=== PATIENT | female | born 1960 | race Caucasian/White ===

== ENCOUNTER 2017-06-07 14:13 | Emergency (ER) | payer SELFPAY ==
[2017-06-07] MEDS ORDERED: Ketorolac Tromethamine 60 MG/2 ML VIAL ONE (14:41)
== END 2017-06-07 14:50 | disposition home or self-care (01) ==
LOC: NAV ERS 14:13
DX: M54.42 Lumbago with sciatica, left side (principal); E11.9 Type 2 diabetes mellitus without complications; I10 Essential (primary) hypertension; F32.9 Major depressive disorder, single episode, unspecified; Z79.4 Long term (current) use of insulin; Z87.891 Personal history of nicotine dependence; Z79.84 Long term (current) use of oral hypoglycemic drugs; Z79.899 Other long term (current) drug therapy
CPT/HCPCS: 96372; J1885

== ENCOUNTER 2018-06-18 08:59 | Emergency (ER) | payer SELFPAY ==
[2018-06-18] MEDS ORDERED: Ibuprofen 200 MG TAB ONE (09:38)
[2018-06-18 09:57] LABS: Bilirubin Negative (Negative); Blood, Urine Trace (Negative); Clarity Clear (Clear); Glucose, Urine (Dipstick) 100 mg/dL (Negative); Leukocyte Moderate (Negative); Nitrite Positive (Negative); Protein, Urine (Dipstick) Trace mg/dL (Neg-Trace); pH, Urine 5.5 (5.0-9.0)
[2018-06-18 09:57] LABS: #Basophils 0.1 thou/uL (0.0-0.2); #Lymphocytes 1.9 thou/uL (1.20-3.40); #Monocytes 0.8 thou/uL (0.11-0.59); #Neutrophils 9.2 thou/uL (1.40-6.50); %Basophils 0.5 % (0.0-1.0); %Eosinophils 0.3 % (0.0-10.0); %Lymphocytes 16.1 % (21.0-51.0); %Monocytes 6.6 % (0.0-10.0); %Neutrophils 76.5 % (42.0-75.0); Hemoglobin 13.9 g/dL (12.0-16.0); Mean Corpuscular HGB CONC 32.4 g/dL (32.0-36.0); Mean Corpuscular Hemoglobin 27.6 pg (27.0-31.0); Mean Corpuscular Volume 85.3 fL (78.0-98.0); Mean Platelet Volume 7.3 fL (7.4-10.4); Platelet Count 387 thou/uL (130-400); RBC Distribution Width 11.4 % (11.5-14.5); Red Blood Cell (RBC) Count 5.02 mill/uL (4.20-5.40)
[2018-06-18 10:05] LABS: Bacteria/HPF 3+ HPF (None Seen); RBC/HPF 0-3 HPF (0-3); WBC/HPF 21-50 HPF (0-3)
[2018-06-18 10:10] LABS: ALT (SGPT) 43 U/L (8-55); AST (SGOT) 17 U/L (5-34); Albumin 4.5 g/dL (3.5-5.0); Alkaline Phosphatase 162 U/L (40-150); Anion Gap 20 mmol/L (10-20); BUN (Urea Nitrogen) 18 mg/dL (9.8-20.1); Bilirubin, Total 0.7 mg/dL (0.2-1.2); Calc. Creatinine Clearance 0 mL/min (70-130); Calcium 10.8 mg/dL (7.8-10.44); Carbon Dioxide 21 mmol/L (22-29); Chloride 94 mmol/L (98-107); Estimated GFR-MDRD 50; Glucose 269 mg/dL (70-105); Potassium 4.3 mmol/L (3.5-5.1); Protein, Total 8.5 g/dL (6.0-8.3); Sodium 131 mmol/L (136-145)
[2018-06-18] MEDS ORDERED: Sodium Chloride 0.9% 100 ML ONE (10:15)
[2018-06-18] MEDS ORDERED: cefTRIAXone\\ROCEPHIN 1 GM VIAL ONE (10:15)
[2018-06-18] MEDS ORDERED: Sodium Chloride 0.9% 1,000 ML ONE (10:15)
--- NOTE | 2018-06-18 10:30 | RAD ---
CHEST 1 VIEW: HISTORY: Fever. COMPARISON: None. FINDINGS: The lungs are clear. No pneumothorax or effusion. Cardiac silhouette and mediastinal contours are w ithin normal limits. IMPRESSION: No acute intrathoracic abnormality. POS: [facility]
== END 2018-06-18 11:43 | disposition home or self-care (01) ==
LOC: NAV ERS 08:59
DX: N12 Tubulo-interstitial nephritis, not specified as acute or chronic (principal); E78.5 Hyperlipidemia, unspecified; E11.9 Type 2 diabetes mellitus without complications; I10 Essential (primary) hypertension; F41.9 Anxiety disorder, unspecified; F32.9 Major depressive disorder, single episode, unspecified; Z87.891 Personal history of nicotine dependence; Z79.4 Long term (current) use of insulin; Z79.899 Other long term (current) drug therapy
CPT/HCPCS: 71046; 80053; 81003; 81015; 83605; 85025; 87040; 87077; 87086; 87186; 87804; 96365; J0696; J7050

== ENCOUNTER 2020-06-09 13:30 | Emergency (ER) | payer SELFPAY ==
[2020-06-09] MEDS ORDERED: Aspirin Chewable 81 MG TAB ONE (13:41)
[2020-06-09] MEDS ORDERED: Nitroglycerin 0.4 MG TAB (25 Tab Bottle) ONE (13:41)
[2020-06-09] MEDS ORDERED: Metoprolol Tartrate 5 MG/5 ML VIAL ONE (13:45)
[2020-06-09] MEDS ORDERED: Ondansetron PF 4 MG/2 ML Vial ONE (14:00)
[2020-06-09 14:01] LABS: #Basophils 0.1 thou/uL (0.0-0.2); #Eosinphils 0.1 thou/uL (0.0-0.7); #Lymphocytes 3.1 thou/uL (1.20-3.40); #Monocytes 0.5 thou/uL (0.11-0.59); #Neutrophils 5.4 thou/uL (1.40-6.50); %Basophils 0.9 % (0.0-1.0); %Eosinophils 0.8 % (0.0-10.0); %Lymphocytes 33.6 % (21.0-51.0); %Monocytes 4.9 % (0.0-10.0); %Neutrophils 59.8 % (42.0-75.0); Hemoglobin 13.3 g/dL (12.0-16.0); Mean Corpuscular Hemoglobin 28.5 pg (27.0-31.0); Mean Corpuscular Volume 88.9 fL (78.0-98.0); Mean Platelet Volume 7.4 fL (7.4-10.4); Platelet Count 304 thou/uL (130-400); RBC Distribution Width 11.9 % (11.5-14.5); Red Blood Cell (RBC) Count 4.67 mill/uL (4.20-5.40); White Blood Cell (WBC) Count 9.1 thou/uL (4.8-10.8)
[2020-06-09 14:14] LABS: ALT (SGPT) 14 U/L (8-55); AST (SGOT) 13 U/L (5-34); Albumin 4.5 g/dL (3.5-5.0); Alkaline Phosphatase 66 U/L (40-110); Anion Gap 16 mmol/L (10-20); BUN (Urea Nitrogen) 11 mg/dL (9.8-20.1); Bilirubin, Total 0.2 mg/dL (0.2-1.2); CK (CPK) 63 U/L (29-168); Calc. Creatinine Clearance 0 mL/min (70-130); Calcium 9.2 mg/dL (7.8-10.44); Carbon Dioxide 25 mmol/L (22-29); Chloride 98 mmol/L (98-107); Estimated GFR-MDRD 52; Globulin 2.4 g/dL (2.4-3.5); Glucose 334 mg/dL (70-105); Lipase 62 U/L (8-78); Potassium 4.4 mmol/L (3.5-5.1); Protein, Total 6.9 g/dL (6.0-8.3); Sodium 135 mmol/L (136-145)
[2020-06-09] MEDS ORDERED: Insulin Regular 300 UNITS/3 ML VIAL ONE (14:31)
--- NOTE | 2020-06-09 15:49 | RAD ---
PORTABLE CHEST: HISTORY: Chest pain. FINDINGS: The lungs appear clear. No infiltrate or vascular congestion. Heart and mediastinum unremarkable. IMPRESSION: No acute finding. POS: OFF
== END 2020-06-09 15:20 | disposition short-term general hospital (02) ==
LOC: NAV ERS 13:30
DX: R07.2 Precordial pain (principal); E11.65 Type 2 diabetes mellitus with hyperglycemia; E78.5 Hyperlipidemia, unspecified; E78.00 Pure hypercholesterolemia, unspecified; I10 Essential (primary) hypertension; F41.9 Anxiety disorder, unspecified; F32.9 Major depressive disorder, single episode, unspecified; F17.210 Nicotine dependence, cigarettes, uncomplicated; Z79.4 Long term (current) use of insulin
CPT/HCPCS: 36416; 71045; 80053; 82550; 83690; 84484; 85025; 93005; 96361; 96374; 96375; J1815; J2405